=== PATIENT | female | born 1945 | race Caucasian/White ===

== ENCOUNTER 2019-09-13 00:24 | Outpatient (CLI) | payer MEDICARE, SELFPAY ==
[2019-09-13 18:00] LABS: SARS-CoV-2 RNA PCR Negative
== END 2019-09-13 00:25 | disposition home or self-care (01) ==
LOC: ANHCOVIDDT 00:25
PROVIDERS: Visit Provider Internal Medicine Gastroenterology
DX: Z01.812 Encounter for preprocedural laboratory examination (principal); Z20.828 Contact with and (suspected) exposure to other viral communicable diseases
CPT/HCPCS: 87635; C9803; U0003

== ENCOUNTER 2019-09-16 01:05 | Day surgery (SDC) | payer MEDICARE, SELFPAY ==
--- NOTE | 2019-09-16 07:02 | WPDANESEPPF ---
Anes - Initial Pre Proc Eval Procedure: Operation Date: 09/16/19 08:30 Proposed Procedures p Esophagogastroduodenoscopy & Colonoscopy - Bert Lopes MD Date/Time: 09/16/19 07:02 Surgeon: Bert Lopes MD Pre Op Diagnosis: Diverticulitis, Dyspepsia Patient Data Age: 73 Gender: F Height: 5 ft 5 in Weight: 82 kg Allergies Allergy/AdvReac Type Severity Reaction Status Date / Time amoxicillin Allergy Mild Rash Verified 09/09/19 09:42 Home Medications Medication Instructions Recorded Confirmed Type levothyroxine [Synthroid] 75 mcg PO DAILY 09/09/19 09/09/19 History omega 1-iih-ctt-fish oil [Fish Oil] 1 cap PO DAILY 09/09/19 09/09/19 History omeprazole 40 mg PO DAILY 09/09/19 09/09/19 History Patient hx anesthesia problems: other (slow to awaken) Family hx anesthesia problems: other (slow to awaken) [facility] Past Medical History Medical History GERD (gastroesophageal reflux disease) Hypothyroid Anes - Eval Final PreProcedure Day of Procedure 09/16/19 07:02 Patient weight: overweight Heart: regular rate and rhythm Lungs: clear to auscultation Airway: Mallampati scale class 1 Neurological: alert and oriented Last oral intake: >/= 8 hours ASA classification: II Emergent: no Anesthetic plan: proceed Anesthesia type and monitoring: general GIVS and standard monitoring Informed Consent: The patient's anesthetic plan and its attendant risks and benefits were discussed with the patient/family/POA. Questions were solicited and answers provided to the satisfaction of the patient/family/POA.
[2019-09-16] MEDS: LACTATED RINGERS 1,000 ML 150 ML IV CONT (07:50)
--- NOTE | 2019-09-16 07:52 | WPDGICN ---
Assessment and Plan Assessment and plan (1) Diverticulitis: Code(s): K57.92 - Diverticulitis of intestine, part unspecified, without perforation or abscess without bleeding Status: Acute Assessment and Plan: Abnormal CT scan suggestive of diverticulitis. Plan is to evaluate with colonoscopy. Patient should continue a high-fiber diet. She is status post at least 2 rounds of antibiotics at this point. Currently asymptomatic. (2) Family history of colon cancer in mother: Code(s): Z80.0 - Family history of malignant neoplasm of digestive organs Status: Acute Assessment and Plan: Screening colonoscopy will be performed today. Follow-up colonoscopy suggested at 5 year intervals. (3) Dyspepsia: Code(s): R10.13 - Epigastric pain Status: Acute Assessment and Plan: Patient has begun to improve with Prilosec. Plan is to evaluate more thoroughly with an EGD. (4) Abdominal pain: Code(s): R10.9 - Unspecified abdominal pain Status: Acute Assessment and Plan: Patient has epigastric pain suggestive of GE reflux. She also has resolved left lower quadrant pain consistent with her diverticulitis. Plan is to continue Prilosec further recommendations after EGD. GI Consult Note Consult date/time: 09/16/19 07:52 HPI: Sarah Keane is a 73 year old female Seen in evaluation at the request of Landen Redding. Patient has a history of recurrent diverticulitis. She is she has had symptoms since March of 2019. After root canal. She reports significant abdominal bloating and gas. She has been treated with 2 rounds of antibiotics. She describes pain low in the abdomen. With slightly on the right lower quadrant. She also complains of sour stomach. With acid taste in reflux into her mouth. She denies any dysphagia. She denies any bleeding. She denies any weight loss. Family history is noncontributory. In 2014 she is known to have diverticular disease by colonoscopy. Recent CT scan of the abdomen suggested diverticulitis. She also had enlarged spleen. Review of Systems Review of Systems: All systems reviewed & are unremarkable except as noted in HPI and below PMFSH Past Medical History Medical History GERD (gastroesophageal reflux disease) Hypothyroid Meds Home Medications and Allergies Home Medications Medication Instructions Recorded Confirmed Type levothyroxine [Synthroid] 75 mcg PO DAILY 09/09/19 09/09/19 History omega 7-zti-uet-fish oil [Fish Oil] 1 cap PO DAILY 09/09/19 09/09/19 History omeprazole 40 mg PO DAILY 09/09/19 09/09/19 History Allergies Allergy/AdvReac Type Severity Reaction Status Date / Time amoxicillin Allergy Mild Rash Verified 09/16/19 07:52 Exam Narrative: Exam Narrative: Physical exam reveals patient to be alert. Vital signs are stable. HEENT exam unremarkable. She is anicteric. Lungs are clear to auscultation and percussion. Heart is without murmur or extra sounds. Abdominal exam bowel sounds are present soft nontender with no organomegaly. Digital external rectal exam is normal.
[2019-09-16 07:59] VITALS: BP 173/83; PULSE 68; RESP 16; TEMP 36.9; O2SAT 97; BMI 30.1
[2019-09-16] MEDS: BENZOCAINE (*SP) 60 ML SPRAY CAN (HURRICAINE) 1 SPRAY MUCOUS MEM (09:13)
[2019-09-16 09:47] VITALS: BP 101/62; PULSE 69; RESP 16; O2SAT 92
--- NOTE | 2019-09-16 09:54 | OP_ITS ---
"DATE OF PROCEDURE: 09/16/2019 PROCEDURE: Esophagogastroduodenoscopy. PREOPERATIVE DIAGNOSES: 1. Dyspepsia. 2. Abdominal pain. POSTOPERATIVE DIAGNOSIS: Unremarkable esophagogastroduodenoscopy. DESCRIPTION OF PROCEDURE: Informed consent for the EGD is obtained from the patient. The risks, benefits, alternatives, and indications are discussed thoroughly with the patient prior to starting the procedure. The risks include, but are not limited to, adverse reaction to medications including allergies, the risk of bleeding, and possible need for transfusion, the risk of perforation and possible need for surgery, and the risk for missed pathology. The patient voiced clear understanding, agreed to proceed. The patient is sedated with anesthesia. Following findings, the [employer] video endoscope passed through the esophagus, which appears normal. Squamocolumnar junction intact at 40 cm. Stomach is seen in its entirety including U-turn is normal. Duodenum reveals a normal bulb and sweep at the 2nd portion. Random biopsy taken from the body of the stomach sent for CRESCENCIO testing is initially negative for Helicobacter pylori. IMPRESSION: Unremarkable esophagogastroduodenoscopy. No obvious explanation for her dyspepsia. Suspect she has acid reflux. Now adequately controlled with Prilosec. PLAN: To continue Prilosec or true generic equivalent 20 mg p.o. daily. Gas-X can supplement this for any bloating. If patient continues to feel good, after 2 months Prilosec may be tried at a p.r.n. dose. EGD is completed and colonoscopy is anticipated later today for other complaints. Emelina I MT: Andrade"
[2019-09-16 09:57] VITALS: BP 114/67; PULSE 62; RESP 18; O2SAT 98
[2019-09-16 10:07] VITALS: BP 141/81; PULSE 63; RESP 18; O2SAT 98
--- NOTE | 2019-09-16 13:14 | OP_ITS ---
DATE OF PROCEDURE: 09/16/2019 PROCEDURE: Colonoscopy. PREOPERATIVE DIAGNOSIS: Diverticulitis with abnormal CAT scan and abdominal pain. POSTOPERATIVE DIAGNOSIS: Sigmoid diverticulosis and internal hemorrhoids. DESCRIPTION OF PROCEDURE: Informed consent for the colonoscopy was obtained from the patient. The risks, benefits, alternatives, and indications are discussed thoroughly with the patient prior to starting the sedation. The risks include, but are not limited to, adverse reaction to medications including allergies, the risk of bleeding and possible need for transfusion, the risk of perforation and possible need for surgery, and the risk for missed pathology. The patient voiced clear understanding. The patient was sedated with Anesthesia assistance. Following findings, digital external rectal exam was normal. [employer] video colonoscope passed from the anus to the cecum preparation throughout the colon that was good. Cecum was intubated identified by appendiceal orifice. Upon withdrawing the instrument, normal mucosa was noted. No polyps or masses were noted. In the sigmoid colon, diverticular lesions are noted with no associated inflammation or bleeding at this time. At the anus, U-turn view confirms the internal hemorrhoids. IMPRESSION: Sigmoid diverticulosis and internal hemorrhoids. PLANS: For high-fiber diet. Previous infection appears to have resolved. meterman high-fiber diet encouraged. Should patient have experienced additional pain, follow up in the office is advised at that time. At this time, the patient is instructed to follow up with attending physician, Dr. Landen Redding. Emelina I MT: Andrade
== END 2019-09-16 10:40 | disposition home or self-care (01) ==
PROVIDERS: PCP Family Medicine; Visit Provider Internal Medicine Gastroenterology
PROC: 0DJ08ZZ Inspection of Upper Intestinal Tract, Via Natural or Artificial Opening Endoscopic (ICD-10-PCS; CPT 43235; principal; 2019-09-16 08:30)
DX: K57.30 Diverticulosis of large intestine without perforation or abscess without bleeding (principal); K64.8 Other hemorrhoids; K21.9 Gastro-esophageal reflux disease without esophagitis; E03.9 Hypothyroidism, unspecified
CPT/HCPCS: 45378; 43239; 87081; J2704; J7120